=== PATIENT | male | born 1975 | race Caucasian/White ===

== ENCOUNTER → 2022-02-10 | Day surgery (SDC) | payer OTHER ==
[~2022-02-10] VITALS: Ht 177.8 cm; Wt 90.7 kg
[~2022-02-10] MED LIST: ADDERALL XR 3030 MG PO; ATORVASTATIN CA20 MG PO; SERTRALINE HCL100 MG PO; TEGRETOL200 MG PO
[2022-02-10 09:30] LABS: HGB 15.9 g/dl (13.2-18.0); MCH 30.2 pg (25.0-31.0); MCHC 34.6 g/dL (32.0-36.0); MCV 87.3 fL (78.0-100.0); MPV 8.9 fL (6.0-9.5); RBC 5.27 M/uL (4.70-6.00); RDW 12.5 % (11.5-14.0); WBC 11.7 K/uL (4.0-10.5)
[2022-02-10 10:04] LABS: ALBUMIN 3.8 g/dL (3.4-5.0); BILIRUBIN - TOTAL 0.2 mg/dL (0.2-1.0); BUN/CREAT RATIO (CALC) 14.8 RATIO; CREATININE 0.88 mg/dL (0.67-1.17); GLOBULIN (CALCULATION) 3.6 g/dL; POTASSIUM 4.2 mmol/L (3.5-5.1); TOTAL PROTEIN 7.4 g/dL (6.4-8.2)
== END | disposition home or self-care (01) ==
LOC: FAS 09:03
PROVIDERS: Surgery
DX: R10.32 Left lower quadrant pain (principal); R19.7 Diarrhea, unspecified; K64.4 Residual hemorrhoidal skin tags; F17.210 Nicotine dependence, cigarettes, uncomplicated; Z80.0 Family history of malignant neoplasm of digestive organs
CPT/HCPCS: 36415; 80053; J2250; J2704; J7120